=== PATIENT | male | born 1955 | race Caucasian/White ===

== ENCOUNTER 2018-06-07 16:57 | Inpatient (IN) | payer MEDICARE ==
[2018-06-07] MEDS ORDERED: HALOPERIDOL 5 MG/ML VIAL (J1630) As Ordered (17:02)
[2018-06-07] MEDS ORDERED: diphenhydrAMINE INJ 50MG/ML VIAL (J1200) As Ordered (17:02)
[2018-06-07] MEDS: HALOPERIDOL 5 MG/ML VIAL (J1630) IM (17:08)
[2018-06-07] MEDS: diphenhydrAMINE INJ 50MG/ML VIAL (J1200) IM (17:08)
[2018-06-07 18:48] LABS: HEMATOCRIT 41.5 % (42.0-52.0); HEMOGLOBIN 13.7 g/dl (13.5-17.5); MEAN CORPUSCULAR HEMOGLOBIN 30.3 pg (27.0-33.0); MEAN CORPUSCULAR VOLUME 91.8 fl (80.0-96.0); PLATELET COUNT, AUTOMATED 183 10^3/uL (150-450); RED BLOOD COUNT 4.52 10^6/uL (4.30-6.10); RED CELL DISTRIBUTION WIDTH 13.9 % (11.5-14.5); WHITE BLOOD COUNT 7.2 10^3/uL (4.0-10.0)
[2018-06-07 19:10] LABS: AMPHETAMINES LEVEL URINE NEGATIVE (NEGATIVE); BARBITURATES URINE NEGATIVE (NEGATIVE); BENZODIAZEPINES URINE NEGATIVE (NEGATIVE); CANNABINOIDS URINE NEGATIVE (NEGATIVE); COCAINE METABOLITE URINE NEGATIVE (NEGATIVE); METHADONE URINE NEGATIVE (NEGATIVE); OPIATES URINE NEGATIVE (NEGATIVE); PHENCYCLIDINE URINE NEGATIVE (NEGATIVE)
[2018-06-07 19:35] LABS: ACETAMINOPHEN LEVEL < 2.0 UG/ML (10.0-30.0); ALBUMIN 3.5 GM/DL (3.2-5.2); ALBUMIN/GLOBULIN RATIO 1.17 (1.00-1.93); ALKALINE PHOSPHATASE 102 U/L (45-117); ALT/SGPT 23 U/L (12-78); ANION GAP 7 MEQ/L (8-16); AST/SGOT 21 U/L (7-37); BILIRUBIN,DIRECT 0.1 MG/DL (0.0-0.2); BILIRUBIN,TOTAL 0.4 MG/DL (0.2-1.0); BLOOD UREA NITROGEN 15 MG/DL (7-18); CALCIUM LEVEL 8.7 MG/DL (8.8-10.2); CARBON DIOXIDE LEVEL 29 MEQ/L (21-32); CHLORIDE LEVEL 104 MEQ/L (98-107); ETHYL ALCOHOL (ETHANOL) < 0.003 % (0.000-0.010); GLOMERULAR FILTRATION RATE > 60.0 (>49); GLUCOSE, FASTING 106 MG/DL (70-100); POTASSIUM SERUM 4.2 MEQ/L (3.5-5.1); SALICYLATE LEVEL < 1.7 MG/DL (5.0-30.0); SODIUM LEVEL 140 MEQ/L (136-145); TOTAL PROTEIN 6.5 GM/DL (6.4-8.2)
[2018-06-08] MEDS: diphenhydrAMINE INJ 50MG/ML VIAL (J1200) IM (05:30)
[2018-06-08] MEDS: HALOPERIDOL 5 MG/ML VIAL (J1630) IM (05:30)
[2018-06-08] MEDS: LORazepam 2 MG/ML VIAL (J2060) IM (07:36)
[2018-06-08] MEDS: LISINOPRIL 10 MG TAB PO (09:07)
[2018-06-08] MEDS: hydroCHLOROthiazide 25 MG TAB PO (09:07)
[2018-06-08] MEDS: amLODIPine 5 MG TAB PO (09:07)
[2018-06-08] MEDS: risperiDONE 2 MG TAB PO ×2 (09:08→19:58)
[2018-06-08] MEDS ORDERED: MOM 30ML SUSPENSION UDC PO (15:15)
[2018-06-08] MEDS ORDERED: MAALOX 30 ML SUSP *UDC PO (15:15)
[2018-06-08] MEDS: QUEtiapine FUMARATE 100 MG TAB PO (19:58)
[2018-06-09] MEDS: risperiDONE 2 MG TAB PO ×2 (09:03→20:36)
[2018-06-09] MEDS: hydroCHLOROthiazide 25 MG TAB PO (09:03)
[2018-06-09] MEDS: amLODIPine 5 MG TAB PO (09:06)
[2018-06-09] MEDS: LISINOPRIL 10 MG TAB PO (09:06)
[2018-06-09] MEDS: LORazepam 2 MG/ML VIAL (J2060) IM ×2 (09:10→15:16)
[2018-06-09] MEDS: OLANZapine INTRAMUSCULAR 10 MG VIAL (S0166) IM ×2 (09:11→15:16)
[2018-06-09] MEDS: QUEtiapine FUMARATE 100 MG TAB PO (20:36)
[2018-06-10] MEDS: LISINOPRIL 10 MG TAB PO (08:22)
[2018-06-10] MEDS: amLODIPine 5 MG TAB PO (08:22)
[2018-06-10] MEDS: risperiDONE 2 MG TAB PO (08:22)
[2018-06-10] MEDS: hydroCHLOROthiazide 25 MG TAB PO (08:23)
[2018-06-10] MEDS: QUEtiapine FUMARATE 100 MG TAB PO (21:37)
[2018-06-10] MEDS: PALIPERIDONE 3 MG ER TAB (INVEGA) PO (21:37)
[2018-06-11] MEDS: amLODIPine 5 MG TAB PO (09:00)
[2018-06-11] MEDS: LISINOPRIL 10 MG TAB PO (09:00)
[2018-06-11] MEDS: hydroCHLOROthiazide 25 MG TAB PO (09:00)
[2018-06-11] MEDS: PALIPERIDONE 3 MG ER TAB (INVEGA) PO ×2 (09:00→22:15)
[2018-06-11] MEDS: OLANZapine INTRAMUSCULAR 10 MG VIAL (S0166) IM (11:58)
[2018-06-11] MEDS: QUEtiapine FUMARATE 100 MG TAB PO (22:15)
[2018-06-12] MEDS: ACETAMINOPHEN TAB 650MG DOSE (2X325MG) PO (05:34)
[2018-06-12] MEDS: PALIPERIDONE 3 MG ER TAB (INVEGA) PO (08:32)
[2018-06-12] MEDS: hydroCHLOROthiazide 25 MG TAB PO (08:32)
[2018-06-12] MEDS: amLODIPine 5 MG TAB PO (08:32)
[2018-06-12] MEDS: LISINOPRIL 10 MG TAB PO (08:33)
[2018-06-12] MEDS: QUEtiapine FUMARATE 100 MG TAB PO (20:48)
[2018-06-12] MEDS: PALIPERIDONE 6 MG ER TAB (INVEGA) PO (20:48)
[2018-06-13] MEDS: HALOPERIDOL 5 MG/ML VIAL (J1630) IM (03:10)
[2018-06-13] MEDS: LORazepam 2 MG/ML VIAL (J2060) IM (03:10)
[2018-06-13] MEDS: diphenhydrAMINE INJ 50MG/ML VIAL (J1200) IM (03:10)
[2018-06-13] MEDS: amLODIPine 5 MG TAB PO (09:00)
[2018-06-13] MEDS: LISINOPRIL 10 MG TAB PO (09:00)
[2018-06-13 09:19] LABS: KETONE, URINE AUTO RFX NEGATIVE (NEGATIVE); LEUKOCYTE ESTERASE UR AUTO RFX NEGATIVE (NEGATIVE); MUCUS, URINE RFX SMALL (NEGATIVE); NITRITE, URINE AUTO RFX NEGATIVE (NEGATIVE); RBC, URINE AUTO RFX 0 /HPF (0-3); SPECIFIC GRAVITY UR AUTO RFX 1.017 (1.002-1.035); SQUAM EPITHELIAL CELL UR AURFX 0 /HPF (0-6); WBC, URINE AUTO RFX 0 /HPF (0-3)
[2018-06-13] MEDS: hydroCHLOROthiazide 25 MG TAB PO (09:40)
[2018-06-13] MEDS: PALIPERIDONE 6 MG ER TAB (INVEGA) PO ×2 (09:40→22:31)
[2018-06-13] MEDS: QUEtiapine FUMARATE 100 MG TAB PO (22:32)
[2018-06-14] MEDS: PALIPERIDONE 6 MG ER TAB (INVEGA) PO ×2 (09:05→21:21)
[2018-06-14] MEDS: hydroCHLOROthiazide 25 MG TAB PO (09:05)
[2018-06-14] MEDS: LISINOPRIL 10 MG TAB PO (09:06)
[2018-06-14] MEDS: amLODIPine 5 MG TAB PO (09:06)
[2018-06-14] MEDS: QUEtiapine FUMARATE 100 MG TAB PO (21:21)
[2018-06-15] MEDS: PALIPERIDONE 6 MG ER TAB (INVEGA) PO ×2 (09:38→21:00)
[2018-06-15] MEDS: amLODIPine 5 MG TAB PO (09:38)
[2018-06-15] MEDS: hydroCHLOROthiazide 25 MG TAB PO (09:38)
[2018-06-15] MEDS: LISINOPRIL 10 MG TAB PO (09:39)
[2018-06-15] MEDS: PALIPERIDONE PALMITATE 234 MG/1.5 ML INJ (INVEGA SUSTENNA)(J2426) IM (13:51)
[2018-06-15] MEDS: QUEtiapine FUMARATE 100 MG TAB PO (21:00)
[2018-06-16] MEDS: PALIPERIDONE 6 MG ER TAB (INVEGA) PO (08:47)
[2018-06-16] MEDS: amLODIPine 5 MG TAB PO (08:48)
[2018-06-16] MEDS: OLANZapine ORAL DISINTEGRATING TAB 5MG PO ×2 (08:48→22:11)
[2018-06-16] MEDS: LISINOPRIL 10 MG TAB PO (08:48)
[2018-06-16] MEDS: hydroCHLOROthiazide 25 MG TAB PO (08:48)
[2018-06-16] MEDS: QUEtiapine FUMARATE 100 MG TAB PO (22:11)
[2018-06-17] MEDS: hydroCHLOROthiazide 25 MG TAB PO (09:38)
[2018-06-17] MEDS: amLODIPine 5 MG TAB PO (09:38)
[2018-06-17] MEDS: LISINOPRIL 10 MG TAB PO (09:38)
[2018-06-17] MEDS: traZODone 50 MG TAB PO (21:14)
[2018-06-17] MEDS: QUEtiapine FUMARATE 100 MG TAB PO (21:14)
[2018-06-18] MEDS: OLANZapine ORAL DISINTEGRATING TAB 5MG PO (04:33)
[2018-06-18] MEDS: PALIPERIDONE PALMITATE 156 MG/1ML INJ(INVEGA SUSTENNA)(J2426) IM ×2 (09:00→09:24)
[2018-06-18] MEDS: LISINOPRIL 10 MG TAB PO (09:37)
[2018-06-18] MEDS: amLODIPine 5 MG TAB PO (09:37)
[2018-06-18] MEDS: hydroCHLOROthiazide 25 MG TAB PO (09:38)
[2018-06-18] MEDS: QUEtiapine FUMARATE 100 MG TAB PO (21:00)
[2018-06-19] MEDS: amLODIPine 5 MG TAB PO (08:57)
[2018-06-19] MEDS: hydroCHLOROthiazide 25 MG TAB PO (08:57)
[2018-06-19] MEDS: LISINOPRIL 10 MG TAB PO (08:57)
[2018-06-19] MEDS: QUEtiapine FUMARATE 100 MG TAB PO (21:00)
[2018-06-20] MEDS: LISINOPRIL 10 MG TAB PO (09:23)
[2018-06-20] MEDS: hydroCHLOROthiazide 25 MG TAB PO (09:23)
[2018-06-20] MEDS: amLODIPine 5 MG TAB PO (09:23)
[2018-06-20] MEDS: QUEtiapine FUMARATE 100 MG TAB PO (21:00)
[2018-06-21] MEDS: amLODIPine 5 MG TAB PO (09:38)
[2018-06-21] MEDS: LISINOPRIL 10 MG TAB PO (09:39)
[2018-06-21] MEDS: hydroCHLOROthiazide 25 MG TAB PO (09:39)
[2018-06-21] MEDS: QUEtiapine FUMARATE 100 MG TAB PO (21:50)
[2018-06-21] MEDS: traZODone 50 MG TAB PO (21:50)
[2018-06-22] MEDS: amLODIPine 5 MG TAB PO (09:52)
[2018-06-22] MEDS: hydroCHLOROthiazide 25 MG TAB PO (09:52)
[2018-06-22] MEDS: LISINOPRIL 10 MG TAB PO (09:53)
[2018-06-22] MEDS: PALIPERIDONE PALMITATE 156 MG/1ML INJ(INVEGA SUSTENNA)(J2426) IM (10:30)
[2018-06-22] MEDS: QUEtiapine FUMARATE 100 MG TAB PO (21:00)
[2018-06-23] MEDS: LISINOPRIL 10 MG TAB PO (09:00)
[2018-06-23] MEDS: amLODIPine 5 MG TAB PO (09:00)
[2018-06-23] MEDS: PALIPERIDONE 6 MG ER TAB (INVEGA) PO ×2 (09:00→21:00)
[2018-06-23] MEDS: [UNRECOGNIZED DRUG - REMARK] XX (09:00)
[2018-06-23] MEDS: hydroCHLOROthiazide 25 MG TAB PO (09:47)
[2018-06-23] MEDS: QUEtiapine FUMARATE 100 MG TAB PO (21:58)
[2018-06-24] MEDS: amLODIPine 5 MG TAB PO (09:00)
[2018-06-24] MEDS: [UNRECOGNIZED DRUG - REMARK] XX (09:00)
[2018-06-24] MEDS: hydroCHLOROthiazide 25 MG TAB PO (09:00)
[2018-06-24] MEDS: LISINOPRIL 10 MG TAB PO (09:00)
[2018-06-24] MEDS: PALIPERIDONE 6 MG ER TAB (INVEGA) PO ×2 (09:00→21:00)
[2018-06-24] MEDS ORDERED: PALIPERIDONE PALMITATE 156 MG/1ML INJ(INVEGA SUSTENNA)(J2426) IM (11:45)
[2018-06-24] MEDS: QUEtiapine FUMARATE 100 MG TAB PO (21:00)
[2018-06-25] MEDS: PALIPERIDONE 6 MG ER TAB (INVEGA) PO ×2 (09:00→22:13)
[2018-06-25] MEDS: [UNRECOGNIZED DRUG - REMARK] XX (09:00)
[2018-06-25] MEDS: hydroCHLOROthiazide 25 MG TAB PO (09:53)
[2018-06-25] MEDS: amLODIPine 5 MG TAB PO (09:53)
[2018-06-25] MEDS: LISINOPRIL 10 MG TAB PO (09:53)
[2018-06-25] MEDS: QUEtiapine FUMARATE 100 MG TAB PO (22:13)
[2018-06-26] MEDS: **PENDING PPD ENTRY XX (09:00)
[2018-06-26] MEDS: [UNRECOGNIZED DRUG - REMARK] XX (09:00)
[2018-06-26] MEDS ORDERED: TUBERCULIN PPD 5 UNITS/0.1 ML ID (09:30)
[2018-06-26] MEDS: PALIPERIDONE 6 MG ER TAB (INVEGA) PO ×2 (09:46→21:00)
[2018-06-26] MEDS: amLODIPine 5 MG TAB PO (09:51)
[2018-06-26] MEDS: hydroCHLOROthiazide 25 MG TAB PO (09:51)
[2018-06-26] MEDS: LISINOPRIL 10 MG TAB PO (09:51)
[2018-06-26] MEDS: QUEtiapine FUMARATE 100 MG TAB PO (21:00)
[2018-06-26] MEDS: HALOPERIDOL 5 MG/ML VIAL (J1630) IM (21:41)
[2018-06-27] MEDS: HALOPERIDOL 5 MG/ML VIAL (J1630) IM (07:05)
[2018-06-27] MEDS: [UNRECOGNIZED DRUG - REMARK] XX (09:00)
[2018-06-27] MEDS: **PENDING PPD ENTRY XX (09:00)
[2018-06-27] MEDS: hydroCHLOROthiazide 25 MG TAB PO (09:27)
[2018-06-27] MEDS: amLODIPine 5 MG TAB PO (09:28)
[2018-06-27] MEDS: PALIPERIDONE 6 MG ER TAB (INVEGA) PO ×2 (09:28→21:00)
[2018-06-27] MEDS: LISINOPRIL 10 MG TAB PO (09:28)
[2018-06-27] MEDS: QUEtiapine FUMARATE 100 MG TAB PO (21:00)
[2018-06-28] MEDS: LORazepam 2 MG/ML VIAL (J2060) IM (04:40)
[2018-06-28] MEDS: HALOPERIDOL 5 MG/ML VIAL (J1630) IM (04:40)
[2018-06-28] MEDS ORDERED: PPD DOCUMENTATION ENTRY MISC XX (10:00)
[2018-06-28] MEDS: hydroCHLOROthiazide 25 MG TAB PO (10:50)
[2018-06-28] MEDS: [UNRECOGNIZED DRUG - REMARK] XX (10:50)
[2018-06-28] MEDS: PALIPERIDONE 6 MG ER TAB (INVEGA) PO ×2 (10:50→21:00)
[2018-06-28] MEDS: **PENDING PPD ENTRY XX (10:50)
[2018-06-28] MEDS: amLODIPine 5 MG TAB PO (10:50)
[2018-06-28] MEDS: LISINOPRIL 10 MG TAB PO (10:50)
[2018-06-28] MEDS: QUEtiapine FUMARATE 100 MG TAB PO (21:00)
[2018-06-29] MEDS: **PENDING PPD ENTRY XX (09:00)
[2018-06-29] MEDS: PALIPERIDONE 6 MG ER TAB (INVEGA) PO ×2 (09:00→21:00)
[2018-06-29] MEDS: [UNRECOGNIZED DRUG - REMARK] XX (09:00)
[2018-06-29] MEDS: hydroCHLOROthiazide 25 MG TAB PO (09:41)
[2018-06-29] MEDS: amLODIPine 5 MG TAB PO (09:41)
[2018-06-29] MEDS: LISINOPRIL 10 MG TAB PO (09:41)
[2018-06-29] MEDS: PALIPERIDONE PALMITATE 234 MG/1.5 ML INJ (INVEGA SUSTENNA)(J2426) IM (14:23)
[2018-06-29] MEDS: QUEtiapine FUMARATE 100 MG TAB PO (21:00)
[2018-06-30] MEDS: **PENDING PPD ENTRY XX (09:00)
[2018-06-30] MEDS: LISINOPRIL 10 MG TAB PO (09:29)
[2018-06-30] MEDS: PALIPERIDONE 6 MG ER TAB (INVEGA) PO (09:29)
[2018-06-30] MEDS: amLODIPine 5 MG TAB PO (09:29)
[2018-06-30] MEDS: hydroCHLOROthiazide 25 MG TAB PO (09:31)
[2018-06-30] MEDS: QUEtiapine FUMARATE 100 MG TAB PO (22:13)
[2018-06-30] MEDS: traZODone 50 MG TAB PO (22:13)
[2018-07-01] MEDS: hydroCHLOROthiazide 25 MG TAB PO (10:17)
[2018-07-01] MEDS: LISINOPRIL 10 MG TAB PO (10:20)
[2018-07-01] MEDS: amLODIPine 5 MG TAB PO (10:20)
[2018-07-01] MEDS: **PENDING PPD ENTRY XX (10:20)
== END 2018-07-01 14:10 | disposition home or self-care (01) | DRG 885 ==
LOC: M ED INP 06-08 15:05 → M ED 16:57 → M PSY 06-08 15:47
DX: F25.0 Schizoaffective disorder, bipolar type (principal); I10 Essential (primary) hypertension; I25.10 Atherosclerotic heart disease of native coronary artery without angina pectoris; I25.2 Old myocardial infarction; F41.9 Anxiety disorder, unspecified; E78.5 Hyperlipidemia, unspecified; D64.9 Anemia, unspecified; M40.209 Unspecified kyphosis, site unspecified; F17.200 Nicotine dependence, unspecified, uncomplicated; Z79.899 Other long term (current) drug therapy

== ENCOUNTER 2018-07-24 15:26 | Outpatient (CLI) | payer MEDICARE ==
[~2018-07-24] VITALS: Ht 167.6 cm; Wt 70.8 kg
[~2018-07-24 15:26] MED LIST: /DIVA50TA PO; /HCTZ25TA PO; /PRAV20TA PO; /QUET10TA PO; AMBI5TAB PO; AMLO5TAB6 PO; ASPI1TAB PO; ASPI81CH12 PO; ASPI81TA51 PO; ATEN50TA2 PO; ATIV1TAB10 PO; ATIV1TAB7 PO; ATIV2TAB PO; BENA25CA2 PO; BENZ-52 PO; BENZ0.5T PO; BENZ1TA PO; BENZ1TAB PO; COGENTIN PO; DEPA1TAB3 PO; DEPA500T2 PO; ECOT81TA PO; GABA100C PO; HALDOL PO; HALO1TAB29 PO; HALO5TA PO; HYDR25TAB PO; HYDR50TA2 PO; INVE234I IM; LASI20TA3 PO; LIPI10TA PO; LISI10TA4 PO; NEUR600T PO; OLAN2.5T PO; PERP8TAB4 PO; POTA10IN2 PO; POTA10TA PO; PROZ10CA7 PO; QUET100T PO; QUET1TAB8 PO; RISP1TAB42 PO; RISP3TAB20 PO; RISP4TAB2 PO; RISP4TAB33 PO; SERO1TAB PO; TENO50TA PO; TRAZ-160 PO; TRIA0.02 EX; ZYPR10TA PO; ZYPR2.5T2 PO; ZYPR5TAB2 PO; [UNRECOGNIZED DRUG - REMARK]
[2018-07-24 16:00] VITALS: BP 178/103
[2018-07-24] MEDS ORDERED: PALIPERIDONE PALMITATE 234 MG/1.5 ML INJ (INVEGA SUSTENNA)(J2426) IM ONE (16:30)
== END 2018-07-24 16:20 | disposition home or self-care (01) ==
LOC: M INFU 15:26
PROVIDERS: ATTEND Psychiatry & Neurology Psychiatry
DX: F20.9 Schizophrenia, unspecified (principal)
CPT/HCPCS: 96372; J2426

== ENCOUNTER 2018-07-29 17:04 | Inpatient (IN) | payer MEDICARE ==
[~2018-07-29 17:04] MED LIST changes: +AMLO5TAB4 PO; -AMLO5TAB6 PO; +LASI20TA PO; -LASI20TA3 PO
[2018-07-29 17:45] LABS: HEMATOCRIT 38.9 % (42.0-52.0); MEAN CORPUSCULAR HEMOGLOBIN 30.4 pg (27.0-33.0); MEAN CORPUSCULAR HGB CONC 33.4 g/dl (32.0-36.5); MEAN CORPUSCULAR VOLUME 90.9 fl (80.0-96.0); PLATELET COUNT, AUTOMATED 182 10^3/uL (150-450); RED BLOOD COUNT 4.28 10^6/uL (4.30-6.10); WHITE BLOOD COUNT 5.1 10^3/uL (4.0-10.0)
--- NOTE | 2018-07-29 17:52 | REP ---
Chest x-ray: Two views: History: Short of breath. Rule out pulmonary edema. Comparison study: July 15, 2015. Findings: The patients mandible overlies the lung apices and the superior mediastinum. The lungs are otherwise well inflated and clear. Pleural angles are sharp. Heart size is borderline unchanged. Pulmonary vasculature does not appear to be increased. There is no evidence of pleural effusion or pulmonary edema. The thoracic aorta is tortuous as before. Impression: No active disease seen. Borderline heart size unchanged. Electronically Signed by Jeff Haider MD 07/29/2018 06:59 P
[2018-07-29 18:33] LABS: ACETAMINOPHEN LEVEL < 2.0 UG/ML (10.0-30.0); ALBUMIN 3.2 GM/DL (3.2-5.2); ALT/SGPT 37 U/L (12-78); BILIRUBIN,DIRECT 0.1 MG/DL (0.0-0.2); BILIRUBIN,TOTAL 0.3 MG/DL (0.2-1.0); BLOOD UREA NITROGEN 17 MG/DL (7-18); CALCIUM LEVEL 7.9 MG/DL (8.8-10.2); CARBON DIOXIDE LEVEL 30 MEQ/L (21-32); CHLORIDE LEVEL 99 MEQ/L (98-107); CREATININE FOR GFR 0.59 MG/DL (0.70-1.30); ETHYL ALCOHOL (ETHANOL) < 0.003 % (0.000-0.010); GLOMERULAR FILTRATION RATE > 60.0 (>49); GLUCOSE, FASTING 144 MG/DL (70-100); POTASSIUM SERUM 3.4 MEQ/L (3.5-5.1); SALICYLATE LEVEL 2.4 MG/DL (5.0-30.0); SODIUM LEVEL 135 MEQ/L (136-145); TOTAL PROTEIN 6.2 GM/DL (6.4-8.2)
[2018-07-29] MEDS ORDERED: INVE234I IM (19:30)
[2018-07-29] MEDS ORDERED: MOM 30ML SUSPENSION UDC PO PRN (20:15)
[2018-07-29] MEDS ORDERED: diphenhydrAMINE 25 MG CAP PO PRN (20:15)
[2018-07-29] MEDS ORDERED: ACETAMINOPHEN TAB 650MG DOSE (2X325MG) PO PRN (20:15)
[2018-07-29] MEDS ORDERED: traZODone 50 MG TAB PO PRN (20:15)
[2018-07-29] MEDS ORDERED: MAALOX 30 ML SUSP *UDC PO PRN (20:15)
[2018-07-29] MEDS ORDERED: POTASSIUM CHLORIDE 10 MEQ SR TABLET PO ONE (20:30)
[2018-07-29] MEDS: HALOPERIDOL 5 MG TAB PO PRN (20:32)
[2018-07-29] MEDS: LORazepam 1 MG TAB PO PRN (20:32)
[2018-07-30] MEDS: LORazepam 1 MG TAB PO PRN (08:30)
[2018-07-30] MEDS: HALOPERIDOL 5 MG TAB PO PRN (08:30)
[2018-07-30 08:32] VITALS: BP 150/88
[2018-07-30 08:33] VITALS: BP 150/88
--- NOTE | 2018-07-30 08:50 | HPEPDOC ---
[facility] Medical History & Physical Date of Admission Jul 29, 2018 History and Physical PCP: None ATTENDING: Dr. Raffi Moulton. HPI: 62 [facility]M [facility], being medically examined today. The pt declines to provide history or participate with exam and becomes agitated when attempted. Pt is pacing in hallways, yelling, yelling obscenities at times. History is taken from chart. As per ED record the pt was brought to ED from [facility] in [place] as the pt stated he did not wish to live at [facility] any longer. The pt is noted to have been uncooperative in ED, yelling and using obscenities. PMHx: Hypertension Severe Kyphosis Chronic back pain CAD/Hx of NV H/O dyslipidemia H/o anemia Schizophrenia/Schizoaffective disorder Bipolar disorder Psychosis Anxiety PSHX: None SOCHX: The patient resides in [facility] home in [facility]. He has never been . He is 1 of 8 children. Adopted with his biological sister at a young age. He has had multiple various jobs in the past. He has smoked since age 12. No illicit drug use or alcohol use. FAMHX: Mother: secondary to unknown cause Father: secondary to unknown cause Siblings: Alive, well to the best of his knowledge ROS: Pt declines to provide history at this time. PE: Vital Signs Label Value Date Time Patient Temperature 97.4 degrees F 07/29/18 1712 Temperature Source Oral 07/29/18 1712 Pulse 110 07/29/18 1712 Respiratory Rate 22 bpm 07/29/18 1712 Blood Pressure Assessment 141/92 07/29/18 1712 Bedside Pulse Oximetry 97 % 07/29/18 171 Item Value Date Time Oxygen Delivery Method Room Air 07/29/18 171 Pt declines physical exam at this time. Appears unkept, agitated. He is observed ambulating in the hallways, yelling. No unsteady gait observed, ambulates without any assistive devices. Ate his breakfast this morning. EKG: Pending A&P: 62 yoM [facility] for Psychosis 1. Psych. Plan per Psychiatry. EKG pending. 2. HTN. Continue lisinopril 10 mg daily with hold parameters. Continue Norvasc 5 mg daily with hold parameters. Continue HCTZ 25 mg daily. Monitor. 3. Follow up with Primary Care Provider at discharge. 4. H/O CAD. History of NV. No apparent chest discomfort symptoms at this time. EKG pending. 5. H/O anemia. Hgb 13.0. Appears to be at baseline 11-13. Monitor. 6. Hypokalemia. Oral supplement was given in the emergency department. Recheck BMP in a.m. 7. Hyponatremia. Sodium noted to be 135. Oral intake has improved. Recheck BMP in a.m. 8. Blood sugar noted to be 144 on admission. Add hemoglobin A1c to labs. 9. Staff member Sami assisted in attempting exam. Vital Signs Vital Signs Date Time Temp Pulse Resp B/P (MAP) Pulse Ox O2 Delivery O2 Flow Rate FiO2 07/30/18 08:33 150/88 (108) 07/30/18 08:30 88 07/29/18 17:12 97.4 22 97 Room Air Laboratory Data Labs 24H Laboratory Tests 2 07/29/18 17:33: Nucleated Red Blood Cells % (auto) 0.0, Anion Gap 6L, Glomerular Filtration Rate > 60.0, Calcium Level 7.9L, Aspartate Amino Transf (AST/SGOT) 27, Alanine Aminotransferase (ALT/SGPT) 37, Alkaline Phosphatase 95, Total Bilirubin 0.3, Direct Bilirubin 0.1, Total Protein 6.2L, Albumin 3.2, Albumin/Globulin Ratio 1.07, Thyroid Stimulating Hormone (TSH) 1.230, Salicylates Level 2.4L, Acetaminophen Level < 2.0L, Ethyl Alcohol Level < 0.003 CBC/BMP Laboratory Tests 07/29/18 17:33 Red Blood Count 4.28 L, Mean Corpuscular Volume 90.9, Mean Corpuscular Hemoglobin 30.4, Mean Corpuscular Hemoglobin Concent 33.4, Red Cell Distribution Width 14.0 Home Medications Scheduled Amlodipine Besylate (Amlodipine Besylate) 5 Mg Tab, 5 MG PO DAILY for hyper tension Hydrochlorothiazide (Hydrochlorothiazide) 25 Mg Tab, 25 MG PO DAILY for hypertension Lisinopril (Lisinopril) 10 Mg Tab, 10 MG PO DAILY for hypertension Paliperidone Palmitate (Invega Sustenna) 234 Mg/1.5 Ml Inj, 234 MG IM QMONTH Quetiapine Fumerate (Quetiapine Fumarate) 100 Mg Tab, 100 MG PO QHS for mood Allergies Coded Allergies: No Known Allergies (Verified , 09/30/12) VERIFIED WITH [facility] Rosmery Hardy Jul 30, 2018 08:50
[2018-07-30] MEDS ORDERED: hydroCHLOROthiazide 25 MG TAB PO SCH (09:00)
[2018-07-30] MEDS ORDERED: LISINOPRIL 10 MG TAB PO SCH (09:00)
[2018-07-30] MEDS ORDERED: hydrOXYzine 25 MG TAB PO SCH (09:00)
[2018-07-30] MEDS ORDERED: amLODIPine 5 MG TAB PO SCH (09:00)
--- NOTE | 2018-07-30 09:13 | MHHPEPDOC ---
General Date Of Admission: Jul 29, 2018 Legal Status: 9.39 Chief Complaint "Get the fuck out of my room." History of Present Illness HISTORY OF THE PRESENT ILLNESS: Patient is a 62 -year-old , male, with a history of schizoaffective d/o recently d/c [facility] 07/02/2018 after 1 month staff who was admitted for yelling at screaming at [facility] staff where he resides and stating in the ED that he didn't want to live anymore b/c "they charge too much rent." In ED, pt yelling and cursing at ED staff refusing to cooperate with interview. Pt when seen this am yelling and cursing in the milieu and refused to cooperate with interview yelling and cursing at myself. Rest of history gathered from previous chart records. Psychiatric Review of Systems Depression (2 or more weeks): suicidal thoughts Teresa (4 or more days of): irritable/elevated mood, expansive mood, grandiosity, distractibility Psychosis: delusions, paranoia, disorganization PTSD: denies Anxiety: situational anxiety, stressor related anxiety Anxiety/ 6 months or more of: restlessness, keyed up Past Psychiatric History Previous Psychiatric Diagnosis: schizoaffective d/o Previous Psychiatric Admissions: last admitted [facility] 07/02/18 for schizoaffective d/o, multiple inpatient psychiatric admissions in the past, admission [facility] in 2014 Suicide Attempts:none known Psychiatric Follow-up: [facility] Psychiatric medications: invega sustenna Past Medical History Medical Problems kyphosis affecting lung expansion, of hypertension, history of myocardial infarction ([place]), hypercholesterolemia, chronic anemia. Head Injury: No Seizures: No Hospitalizations: Yes Surgeries: Yes Family Medical/Psychiatric HX Medical Problems unknown Psychiatric Disorders: No Addiction: No Suicide Attemps/Completions: No Addiction History denies Social History Childhood: unable to obtain Abuse/Trauma:unable to obtain Current Living Situation: [facility] residential Education: unable to obtain Employment: disabled Social Support: [facility] Legal: unable to obtain Marital: single Mental Status Examination General Appearance: unkempt, ds/not appear stated age (older) Build: average, other (severe kyphosis) Demeanor: hostile, guarded Eye Contact: poor Activity: agitated, hostile Behavior: uncooperative, resistant, agitated, restless Speech: other (yelling and cursing) Mood: anxious, angry, irritable, elevated Mood agitated Affect: inappropriate, labile, anxious, hostile, disorganized Thought Process: tangential Thought Content (Delusions): grandiose, paranoia Thought Content (Other): preoccupied, guarded, appears paranoid Thought Content (Aggressive): none reported Perception (Hallucinations): none reported Perception (Other): none reported Cognition (Impairment of): none reported Cognition(Intelligence Est.): borderline Oriented: Awake, Alert, Oriented times three Insight: poor Judgment: Poor Psychosis: Psychotic Perceptions Diagnoses schizoaffective d/o Assessment Pt with a history of schizoaffective d/o admitted for yelling and screaming at [facility] staff stating that he feels suicidal b/c "they charge too much rent." Pt has a history of being routinely hostile, yelling, and screaming at staff at [facility] and here when last admitted that does not change with medication and appears to be more a product of his personality and his overall baseline status. Pt received invega sustenna 234mg im on 07/24/18. Pt asking to go home as he does appear his baseline and [facility] agreeing to take him.. Initial Treatment Plan 1. Patient was admitted on a 9.39 status. 2. Complete history was obtained. 3. With patients permission, family will be contacted and database will be expanded. 4. Patients medication regimen will be reviewed and changed accordingly. 5. Patient will be provided with protected environment. 6. Patient will be treated with individual, group, and milieu therapies. 7. Patient will receive supportive psych-education. 8. Discharge planning will commence immediately. 9. Outpatient follow-up treatment will be strongly recommended. 10. The initial treatment plan will focus initially on: * Depression. * Risk for suicide. * Substance abuse. 11. D/c back to [facility] ESTIMATED LENGTH OF STAY: 1-2DAYS. TIME SPENT COUNSELING AND COORDINATING INITIAL CARE: 60 minutes. Vital Signs Vital Signs Date Time Temp Pulse Resp B/P (MAP) Pulse Ox O2 Delivery O2 Flow Rate FiO2 07/30/18 08:33 150/88 (108) 07/30/18 08:30 88 07/29/18 17:12 97.4 22 97 Room Air Laboratory Data 24H Labs Laboratory Tests 2 07/29/18 17:33: Nucleated Red Blood Cells % (auto) 0.0, Anion Gap 6L, Glomerular Filtration Rate > 60.0, Calcium Level 7.9L, Aspartate Amino Transf (AST/SGOT) 27, Alanine Aminotransferase (ALT/SGPT) 37, Alkaline Phosphatase 95, Total Bilirubin 0.3, Direct Bilirubin 0.1, Total Protein 6.2L, Albumin 3.2, Albumin/Globulin Ratio 1.07, Thyroid Stimulating Hormone (TSH) 1.230, Salicylates Level 2.4L, Acetaminophen Level < 2.0L, Ethyl Alcohol Level < 0.003 CBC/BMP Laboratory Tests 07/29/18 17:33 Red Blood Count 4.28 L, Mean Corpuscular Volume 90.9, Mean Corpuscular Hemoglobin 30.4, Mean Corpuscular Hemoglobin Concent 33.4, Red Cell Distribution Width 14.0 Medications Scheduled Amlodipine Besylate (Amlodipine Besylate) 5 Mg Tab, 5 MG PO DAILY for hypertension, (Reported) Hydrochlorothiazide (Hydrochlorothiazide) 25 Mg Tab, 25 MG PO DAILY for hypertension, (Reported) Lisinopril (Lisinopril) 10 Mg Tab, 10 MG PO DAILY for hypertension, (Reported) Paliperidone Palmitate (Invega Sustenna) 234 Mg/1.5 Ml Inj, 234 MG IM QMONTH, (Reported) Quetiapine Fumerate (Quetiapine Fumarate) 100 Mg Tab, 100 MG PO QHS for mood, (Reported) Allergies Coded Allergies: No Known Allergies (Verified , 09/30/12) VERIFIED WITH [facility] KENAN WISEMAN DO Jul 30, 2018 9:13 am
[2018-07-30] MEDS: HALOPERIDOL 5 MG TAB PO SCH ×2 (09:30→12:17)
--- NOTE | 2018-07-30 11:21 | MHDSPDOC ---
[facility] Discharge Summary Discharge Summary DATE OF ADMISSION: Jul 29, 2018 at 8:09 pm DATE OF DISCHARGE: Jul 30, 2018 DISCHARGE DIAGNOSES: schizoaffective d/o REASON FOR ADMISSION: Patient is a 62 -year-old , male, with a history of schizoaffective d/o recently d/c [facility] 07/02/2018 after 1 month staff who was admitted for yelling at screaming at [facility] staff where he resides and stating in the ED that he didn't want to live anymore b/c "they charge too much rent." In ED, pt yelling and cursing at ED staff refusing to cooperate with interview. Pt when seen this am yelling and cursing in the milieu and refused to cooperate with interview yelling and cursing at myself which is his baseline. Pt asking to go home and [facility] agree to take him. Occasionally he's cooperative asking me to call [facility] for him so he can go home as only came here b/c he complaining his rent is too much but now he's ok with it knowing it's not out of his pocket. CONSULTANTS INVOLVED: none TREATMENT AND PROGRESS ON THE UNIT : Pt was admitted to [facility], seen for psychiatric assessment and restarted on his outpatient psychiatric and medical medications that he tolerated well. He was provided Haldol 5mg q6hr prn anxiety/agitation and trazodone 50mg qhs prn insomnia. He appeared at his baseline status (irritable and occasionally verbally hostile, paranoid at times) and asking to go home as only came here due to complaint [facility] charging too much rent. On day of discharge he denied depression, anxiety, insomnia, SI/HI, hallucinations, delusions. He was discharged guillermo to [facility] with follow-up [facility]. He felt safe for discharge. DISCHARGE ASSESSMENT: Pt with a history of schizoaffective d/o admitted for yelling and screaming at [facility] staff stating that he feels suicidal b/c "they charge too much rent." Pt has a history of being routinely hostile, yelling, and screaming at staff at [facility] and here when last admitted that does not change with medication and appears to be more a product of his personality and his overall baseline status. Pt received invega sustenna 234mg im on 07/24/18. Pt asking to go home as he does appear his baseline and [facility] agreeing to take him. He denies depression, anxiety, insomnia, SI/HI, hallucinations, delusions. Feels safe to go home. MENTAL STATUS EXAMINATION ON DISCHARGE: General Appearance: unkempt, ds/not appear stated age (older) Build: average, other (severe kyphosis) Demeanor: hostile, guarded (baseline) Eye Contact: poor Activity: agitated, hostile (baseline) Behavior: uncooperative, resistant, agitated, restless (baseline) Speech: other (yelling and cursing) Mood: anxious, angry, irritable, elevated (baseline) Mood agitated asking to go home Affect: inappropriate, labile, anxious, hostile, disorganized (baseline and product of personality as doesn't change despite treatment) Thought Process: tangential, loose, derailment (baseling) Thought Content (Delusions): baseline paranoia Thought Content (Other): preoccupied, guarded, appears paranoid (baseline) Thought Content (Aggressive): none reported Perception (Hallucinations): none reported Perception (Other): none reported Cognition (Impairment of): none reported Cognition(Intelligence Est.): borderline Oriented: Awake, Alert, Oriented times three Insight: poor Judgment: Poor Psychosis: Psychotic Perceptions (baseline) MEDICATIONS ON DISCHARGE: - Invega Sustenna 234 mg intramuscular (IM) monthly - Seroquel 100 mg at bedtime - trazodone 50 mg at bedtime as needed PLAN/FOLLOWUP ARRANGEMENTS: D/c back to [facility] The amount of time spent in the coordination of care for this patient was approximately 30 minutes. Vital Signs/I&Os Vital Signs Date Time Temp Pulse Resp B/P (MAP) Pulse Ox O2 Delivery O2 Flow Rate FiO2 07/30/18 09:54 Room Air 07/30/18 08:33 150/88 (108) 07/30/18 08:30 88 07/29/18 17:12 97.4 22 97 Laboratory Data Labs 24H Laboratory Tests 2 07/29/18 17:33: Nucleated Red Blood Cells % (auto) 0.0, Anion Gap 6L, Glomerular Filtration Rate > 60.0, Calcium Level 7.9L, Aspartate Amino Transf (AST/SGOT) 27, Alanine Aminotransferase (ALT/SGPT) 37, Alkaline Phosphatase 95, Total Bilirubin 0.3, Direct Bilirubin 0.1, Total Protein 6.2L, Albumin 3.2, Albumin/Globulin Ratio 1.07, Thyroid Stimulating Hormone (TSH) 1.230, Salicylates Level 2.4L, Acetaminophen Level < 2.0L, Ethyl Alcohol Level < 0.003 07/30/18 09:01: CBC/BMP Laboratory Tests 07/29/18 17:33 Red Blood Count 4.28 L, Mean Corpuscular Volume 90.9, Mean Corpuscular Hemoglobin 30.4, Mean Corpuscular Hemoglobin Concent 33.4, Red Cell Distribution Width 14.0 Medications Scheduled Amlodipine Besylate (Amlodipine Besylate) 5 Mg Tab, 5 MG PO DAILY for hypertension, (Reported) Hydrochlorothiazide (Hydrochlorothiazide) 25 Mg Tab, 25 MG PO DAILY for hyper tension, (Reported) Lisinopril (Lisinopril) 10 Mg Tab, 10 MG PO DAILY for hypertension, (Reported) Paliperidone Palmitate (Invega Sustenna) 234 Mg/1.5 Ml Inj, 234 MG IM QMONTH, (Reported) Quetiapine Fumerate (Quetiapine Fumarate) 100 Mg Tab, 100 MG PO QHS for mood, (Reported) Allergies Coded Allergies: No Known Allergies (Verified , 09/30/12) VERIFIED WITH [facility] KENAN WISEMAN DO Jul 30, 2018 11:20 am
[2018-07-30 11:54] LABS: HEMOGLOBIN A1c 5.4 %
[2018-07-30] MEDS ORDERED: QUEtiapine FUMARATE 100 MG TAB PO SCH (21:00)
--- NOTE | 2018-07-31 08:46 | ECGEPIP ---
Stationary ECG Study [facility] - ED Test Date: 2018-07-29 Pat Name: RITA LORENZO Department: Room: - Gender: M Pin Chaser: TC : 1955 Requested By: DELMY Cabrera Order Number: [id number] Reading MD: Carol Walden Measurements Intervals [place] Rate: 92 P: 47 IN: 147 QRS: -9 QRSD: 119 T: 42 QT: 382 QTc: 473 Interpretive Statements SINUS RHYTHM WITH OCCASIONAL VENTRICULAR PREMATURE COMPLEXES POSSIBLE LATERAL MYOCARDIAL INFARCTION, PROBABLY OLD Electronically Signed On 07-31-2018 8:46:31 EST by Carol Walden
== END 2018-07-30 13:15 | disposition home or self-care (01) | DRG 885 ==
LOC: M ED 17:04 → M ED INP 20:09 → M PSY 20:50
PROVIDERS: ADMIT Psychiatry & Neurology Psychiatry; ATTEND Psychiatry & Neurology Psychiatry
DX: F25.9 Schizoaffective disorder, unspecified (principal); E87.1 Hypo-osmolality and hyponatremia; Z79.899 Other long term (current) drug therapy; I10 Essential (primary) hypertension; F41.9 Anxiety disorder, unspecified; I25.10 Atherosclerotic heart disease of native coronary artery without angina pectoris; I25.2 Old myocardial infarction; E78.5 Hyperlipidemia, unspecified; D64.9 Anemia, unspecified; E87.6 Hypokalemia; M40.209 Unspecified kyphosis, site unspecified

== ENCOUNTER 2019-02-25 12:24 | Emergency (ER) | payer MEDICARE ==
[~2019-02-25 12:24] MED LIST changes: -/DIVA50TA PO; -/HCTZ25TA PO; -/PRAV20TA PO; -/QUET10TA PO; -AMLO5TAB4 PO; +AMLO5TAB6 PO; -ASPI1TAB PO; +ASPI81TA26 PO; -BENZ0.5T PO; +BENZ0.5T23 PO; -BENZ1TA PO; +BENZ1TAB42 PO; +HALO10TA20 PO; -HALO1TAB29 PO; +HYDR-3644 PO; -LASI20TA PO; +LASI20TA3 PO; +PRAV1TAB39 PO; -TRAZ-160 PO; +TRAZ-252 PO
[2019-02-25 13:27] VITALS: BP 190/82
== END 2019-02-25 13:35 | disposition home or self-care (01) ==
LOC: M ED 12:24
DX: F20.9 Schizophrenia, unspecified (principal); F43.20 Adjustment disorder, unspecified; M40.209 Unspecified kyphosis, site unspecified; Z79.899 Other long term (current) drug therapy

== ENCOUNTER → 2021-07-02 | Outpatient (CLI) | payer MEDICARE, MEDICAID ==
[~2021-07-02] MED LIST changes: +AMLO1TAB24 PO; -AMLO5TAB6 PO; +HYDR-3490 PO; -HYDR25TAB PO; +LISI10TA22 PO; -LISI10TA4 PO; +QUET100T2 PO; -QUET1TAB8 PO; +RISP-11 PO; -RISP4TAB2 PO
--- NOTE | 2021-07-02 11:27 | REPVR ---
PROCEDURE INFORMATION: Exam: CT Head Without Contrast Exam date and time: 07/02/2021 11:14 AM Age: 65 years old Clinical indication: Other: Drug induced subacute dyskinesia secondary michelle TECHNIQUE: Imaging protocol: Computed tomography of the head without contrast. Radiation optimization: All CT scans at this facility use at least one of these dose optimization techniques: automated exposure control; mA and/or kV adjustment per patient size (includes targeted exams where dose is matched to clinical indication); or iterative reconstruction. COMPARISON: No relevant prior studies available. FINDINGS: Brain: There is no acute intracranial abnormality given limitation of motion artifact. Mild small vessel ischemic changes are seen. There is no mass, midline shift, or mass effect. Parekh-white matter differentiation is preserved. There is no evidence of hemorrhage. There is no extra-axial fluid collection. Basal cisterns are patent. Cerebral ventricles: Mild prominence of ventricles and sulci representing volume loss. Paranasal sinuses: Visualized sinuses are clear. Mastoid air cells: Small fluid in bilateral mastoid air cells, left greater than right. Bones/joints: The visualized osseous structures are unremarkable. Soft tissues: Unremarkable. IMPRESSION: 1. Mild volume loss and small vessel ischemic changes. . 2. No acute intracranial abnormality given limitation of motion artifact. Electronically signed by: Lizett Cash On 07/02/2021 11:27:14 AM
== END ==
LOC: M RAD 10:57
PROVIDERS: ATTEND Psychiatry & Neurology Neurology
DX: G24.01 Drug induced subacute dyskinesia (principal); G21.2 Secondary parkinsonism due to other external agents